=== PATIENT | female | born 1950 | race Caucasian/White ===

== ENCOUNTER 2018-03-07 14:39 | Observation (INO) | payer OTHER ==
[2018-03-07] MEDS ORDERED: DIAZEPAM 5 MG TAB PO ONE (14:54)
[2018-03-07] MEDS ORDERED: NS 1,000 ML IV ONE (14:54)
[2018-03-07] MEDS ORDERED: diphenhydrAMINE 25 MG CAP PO ONE (14:54)
[2018-03-07] MEDS ORDERED: ASPIRIN EC 325 MG TAB PO ONE (14:54)
[2018-03-07] MEDS ORDERED: FAMOTIDINE 20 MG TAB PO ONE (14:54)
[2018-03-07] MEDS ORDERED: LIDOCAINE 1% 300 MG/30 ML SDV ONE (15:12)
[2018-03-07] MEDS ORDERED: fentaNYL 100 MCG/2 ML INJ ONE ×2 (15:12→16:06)
[2018-03-07] MEDS ORDERED: MIDAZOLAM 2 MG/2 ML VIAL ONE ×3 (15:13→16:25)
[2018-03-07] MEDS ORDERED: IOPAMIDOL (ISOVUE-370) 150 ML BTL IV ONE ×2 (15:13→16:29)
[2018-03-07 15:21] LABS: PLATELET COUNT 171 10^3/uL (150-400)
[2018-03-07 15:34] LABS: INR 0.95 (0.83-1.16); PROTIME(PATIENT) 12.9 SEC (12.0-15.0)
--- NOTE | 2018-03-07 15:39 | PDPROPOC ---
Sedation Plan of Care Sedation Plan of Care: vital signs stable, mental status noted, patient educated of risks, benefits, alternatives, patient can tolerate sedation ASA Classification: ASA 2 Planned drugs: fentanyl, midazolam Mallampati Score: Class 2 Mallampati Reference Image: Patient passed 3-3-2 rule?: Yes
--- NOTE | 2018-03-07 15:39 | PDHPUP ---
History & Physical Update H&P update statement: This history and physical update is based on an assessment of the patient which was completed after admission or registration (within 24 hours), but prior to the surgery/procedure. H&P update: H&P reviewed & patient examined, no change in patient's condition since H&P completed
[2018-03-07] MEDS ORDERED: BIVALIRUDIN 250 MG/5 ML VIAL IV ONE (16:17)
[2018-03-07] MEDS ORDERED: ADENOSINE 90 MG/30 ML VIAL IV ONE (16:17)
[2018-03-07] MEDS ORDERED: NITROGLYCERIN 1,500 MCG/15 ML VIAL MISC ONE (16:36)
[2018-03-07] MEDS ORDERED: ASPIRIN 325 MG TAB ONE (16:44)
[2018-03-07] MEDS ORDERED: CLOPIDOGREL BISULFATE 75 MG TAB ONE (16:44)
[2018-03-07] MEDS ORDERED: NITROGLYCERIN 0.4 MG BTL SL PRN (17:04)
[2018-03-07] MEDS ORDERED: CLOPIDOGREL BISULFATE 75 MG TAB PO ONE (17:04)
[2018-03-07] MEDS ORDERED: LORazepam 2 MG/ML INJ IVP PRN (17:04)
[2018-03-07] MEDS ORDERED: ATROPINE SULFATE 1 MG/10 ML SYR IVP PRN (17:04)
[2018-03-07] MEDS: GABAPENTIN 300 MG CAP PO SCH (20:47)
[2018-03-07] MEDS: DOCUSATE SODIUM 100 MG CAP PO SCH (20:47)
[2018-03-07] MEDS: CALCIUM CARB W/VIT D 500 MG TAB PO SCH (20:47)
[2018-03-07] MEDS ORDERED: ZOLPIDEM TARTRATE 5 MG TAB PO SCH (21:00)
[2018-03-08 04:36] LABS: PLATELET COUNT 160 10^3/uL (150-400)
--- NOTE | 2018-03-08 06:49 | CPIP ---
DATE OF PROCEDURE: 03/07/2018 PROCEDURE: 1. Coronary angiography. 2. Left ventriculography. 3. Fractional flow reserve of left anterior descending coronary artery. 4. Stenting of left anterior descending coronary artery with Synergy drug-eluting stent. INDICATION: 1. Crescendo angina. 2. Abnormal stress test as intermediate risk. ACCESS: Patient was prepped and draped in sterile fashion. 1% lidocaine was used to anesthetize the right inguinal region. A 6-Yemeni introducer sheath was placed selectively into the right common fe moral artery via modified Seldinger technique. CORONARY ANGIOGRAPHY: A 6-Yemeni JL4 was advanced to the left main coronary artery and images obtain ed. The left main coronary artery bifurcated into an LAD and circumflex coronary arteries. The left main coronary artery appeared normal. The left anterior descending coronary artery was diffusely di seased. In the proximal portion of the vessel, there was a single discrete 30-40 percent stenosis pr esent. In the midportion of the vessel just after the takeoff of the first diagonal artery, there wa s a single discrete 75% stenosis present. The circumflex coronary artery appeared normal. A 6-Frenc h JR4 was advanced to the right coronary artery and images obtained. The right coronary artery was d ominant. The right coronary artery appeared normal. LEFT VENTRICULOGRAPHY: A 6-Yemeni pigtail catheter was advanced in the left ventricle and images obt ained. Left ventricle was normal in size and had normal systolic function. The estimated ejection f raction was 75%. FRACTIONAL FLOW RESERVE: Left anterior descending coronary artery: A 6-Yemeni JL4 was advanced to t he left main coronary artery and images obtained. Angiography confirmed the presence of intermediate to high-grade lesions involving the proximal and mid left anterior descending coronary artery. FFR wire was placed in the distal vessel and position verified by angiography. IV adenosine was infused and FFR obtained. The FFR was 0.74 distal to the mid lesion. The wire was then withdrawn into the m ore proximal portion of the vessel and FFR obtained. The FFR of the proximal lesion was 0.88. PERCUTANEOUS CORONARY INTERVENTION: Left anterior descending coronary artery: A Luge wire was place d in the distal vessel and position verified by angiography. A 2.25 x 12 Synergy drug-eluting stent was placed across the lesion and deployed. Followup angiography demonstrated [place]-3 flow with no res idual stenosis. COMPLICATIONS: None. CONCLUSIONS: 1. Single-vessel coronary artery disease involving the left anterior descending coronary artery. 2. Normal left ventricular size and systolic function. 3. Status post successful percutaneous coronary intervention of the left anterior descending coronar y artery using a Synergy drug-eluting stent. /[id number]/MODL
[2018-03-08 07:52] VITALS: BP 123/77
[2018-03-08] MEDS: GABAPENTIN 300 MG CAP PO SCH (08:10)
[2018-03-08] MEDS: CALCIUM CARB W/VIT D 500 MG TAB PO SCH (08:10)
[2018-03-08] MEDS: DOCUSATE SODIUM 100 MG CAP PO SCH (08:10)
[2018-03-08] MEDS ORDERED: CLOPIDOGREL BISULFATE 75 MG TAB PO SCH (09:00)
[2018-03-08] MEDS ORDERED: POLYETHYLENE GLYCOL 3350 17 GM PKT PO SCH (09:00)
[2018-03-08] MEDS ORDERED: CYANO/VITAMIN B12 1000 MCG TAB PO SCH (09:00)
[2018-03-08] MEDS ORDERED: CHOLECALCIFEROL VIT D3 1,000 UNITS TAB PO SCH (09:00)
[2018-03-08] MEDS ORDERED: ASPIRIN EC 325 MG TAB PO SCH (09:00)
[2018-03-08] MEDS ORDERED: PANTOPRAZOLE SODIUM 40 MG TAB PO SCH (09:15)
--- NOTE | 2018-03-08 10:00 | ASDISCHSUM ---
Discharge Information Plan Status:Home with No Needs Medically Cleared to Leave:03/07/2018 Discharge Date:03/07/2018 CM D/C Disposition:Home, Routine, Self-Care ADT D/C Disposition:Home, Routine, Self-Care Projected Discharge Date:03/07/2018 Transportation at D/C:Family Discharge Delay Reason: Follow-Up Date:03/07/2018 Discharge Slot: Final Diagnosis: Placement Information Patient Contact Information Contact Name:CHRISTOPHER Relationship: Address:[address] City:[facility] Phone: [facility]/Zip Code:[place] [address] Email: Financial Information Financial Class:Medicare Primary Plan Desc:MEDICARE OUTPATIENT Primary Plan Number:[id number] Secondary Plan Desc:[employer] Secondary Plan Number:[id number] Assessment Information LACE LACE Length of stay for Answers: Less than 1 day current admission Acuity / Level of Answers: No Care: Did the patient have an inpatient admission? # of Emergency department Answers: 0 visits in the last 6 months Date Signed: 03/08/2018 09:59 AM Electronically Signed By:Sharon Oconnell RN Intervention Information
--- NOTE | 2018-03-08 14:09 | GDS ---
DISCHARGE DIAGNOSES: 1. Acute coronary syndrome, status post percutaneous transluminal coronary angioplasty and stenting to mid left anterior descending artery. 2. Dyslipidemia, intolerant of multiple statins. 3. History of gastroesophageal reflux disease. 4. History of headaches. 5. History of degenerative disk disease. PROCEDURES: 03/07/2018, left heart catheterization, which showed single-vessel coronary artery disea se involving the left anterior descending, status post PTCA and stenting with a 2.25 x 12 mm synergy drug-eluting stent. BRIEF HISTORY: In brief, the patient is a 67-year-old female with a history of untreated dyslipidemi a due to sensitivity to multiple statins, early family history of coronary artery disease, who was se en for a treadmill stress test yesterday due to exertional symptoms. She reports a couple of months of symptoms of right chest and shoulder pain with exertion, relieved with rest. Her primary care phy sician, Dr. Belle, ordered a treadmill stress test, which showed EKG changes with exertion, and marisa ent had symptoms upon exertion. She proceeded to left heart catheterization on 03/07/2018. HOSPITAL COURSE BY PROBLEM: 1. Acute coronary syndrome. She has had crescendo angina symptoms starting in the past 2 months. S he proceeded to stress testing that was abnormal and then to left heart catheterization. She was fou nd to have occlusive disease involving her mid LAD. She is status post PTCA and stenting. We review ed the importance of dual antiplatelet therapy. 2. Aspirin allergy. She reports tinnitus that is still present despite not being on aspirin therapy . She will be started on aspirin 81 mg p.o. daily and Plavix. 3. GERD. She was advised to stay on her PPI due to the severity of her symptoms when not on this ag ent in the past. 4. Dyslipidemia. Her LDL yesterday was measured at 155. She will not be started on any statin. Sh e will bring a history of previous statins that she has tried, and we can consider initiating process for PCSK9 inhibitor therapy. 5. Elevated blood pressure. Patient reports that in the past couple of months her home readings hav e been up to 160. In this admission, her blood pressures do appear controlled. She was advised to s tart a daily blood pressure log and bring this to her next office appointment. PHYSICAL EXAM: VITAL SIGNS: On day of discharge, blood pressure 123/77, heart rate 60, respirations 18, O2 saturation 96% on room air, temp 98.1 degrees Fahrenheit. GENERAL: She is a pleasant female in no apparent distress. HEENT: Head is normocephalic, atraumatic. Eyes are without scleral icter us. HEART: Regular rate and rhythm. LUNGS: Clear. SKIN: Right groin site without ecchymosis, br uit, or hematoma present. LABORATORY STUDIES: BMP: Sodium 139, potassium 4.2, chloride 106, CO2 23, BUN 17, creatinine 0.9, g lucose 87, total cholesterol 252, triglycerides 220, LDL of 155, HDL 53. CBC with WBC 7.48, hemoglob in 13.6, hematocrit 39.6, platelet count of 160. RESULTS PENDING: None. DIET: Cardiac diet recommended. DISCHARGE MEDICATIONS: Please see med reconciliation for complete details. She may continue her jillian e Colace, cholecalciferol, MiraLAX, Ambien, omeprazole, Relafen, gabapentin, estrogen, vitamin B12, c alcium. Her new prescriptions are for clopidogrel 75 mg p.o. daily and aspirin 81 mg p.o. daily. ACTIVITY: Groin precautions were reviewed. DISCHARGE INSTRUCTIONS: 1. Follow up with Dr. Tenorio as scheduled for March 25. 2. Groin precautions for the next week. /[id number]/MODL
--- NOTE | 2018-03-08 17:39 | CPEKG ---
Test Reason : OPEN Blood Pressure : / mmHG Vent. Rate : 071 BPM Atrial Rate : 072 BPM P-R Int : 139 ms QRS Dur : 089 ms QT Int : 378 ms P-R-T Axes : 063 008 193 degrees QTc Int : 411 ms Sinus rhythm Confirmed by Garret Daly ([id number]) on 03/08/2018 5:39:30 PM Referred By: Confirmed By:Garret Daly
--- NOTE | 2018-03-08 17:40 | CPEKG ---
Test Reason : OPEN Blood Pressure : / mmHG Vent. Rate : 065 BPM Atrial Rate : 065 BPM P-R Int : 146 ms QRS Dur : 082 ms QT Int : 429 ms P-R-T Axes : 021 014 179 degrees QTc Int : 447 ms Sinus rhythm Nonspecific T abnormalities, diffuse leads Confirmed by Garret Daly ([id number]) on 03/08/2018 5:40:16 PM Referred By: Confirmed By:Garret Daly
--- NOTE | 2018-03-08 17:41 | CPEKG ---
Test Reason : OPEN Blood Pressure : / mmHG Vent. Rate : 062 BPM Atrial Rate : 063 BPM P-R Int : 140 ms QRS Dur : 086 ms QT Int : 429 ms P-R-T Axes : -06 006 162 degrees QTc Int : 436 ms Sinus rhythm Nonspecific T abnrm, anterolateral leads Confirmed by Garret Daly ([id number]) on 03/08/2018 5:41:14 PM Referred By: Confirmed By:Garret Daly
== END 2018-03-08 10:13 | disposition home or self-care (01) ==
LOC: FCATH 14:39 → F2W 16:38
PROVIDERS: ADMIT Internal Medicine Cardiovascular Disease; ATTEND Internal Medicine Cardiovascular Disease
PROC: B2111ZZ Fluoroscopy of Multiple Coronary Arteries using Low Osmolar Contrast (ICD-10-PCS; principal; 2018-03-07)
PROC: 027034Z Dilation of Coronary Artery, One Artery with Drug-eluting Intraluminal Device, Percutaneous Approach (ICD-10-PCS; principal; 2018-03-07)
PROC: 4A033BC Measurement of Arterial Pressure, Coronary, Percutaneous Approach (ICD-10-PCS; principal; 2018-03-07)
PROC: 4A023N7 Measurement of Cardiac Sampling and Pressure, Left Heart, Percutaneous Approach (ICD-10-PCS; principal; 2018-03-07)
PROC: B2151ZZ Fluoroscopy of Left Heart using Low Osmolar Contrast (ICD-10-PCS; principal; 2018-03-07)
DX: I25.118 Atherosclerotic heart disease of native coronary artery with other forms of angina pectoris (principal); E78.5 Hyperlipidemia, unspecified; K21.9 Gastro-esophageal reflux disease without esophagitis; Z88.6 Allergy status to analgesic agent
CPT/HCPCS: 93005; 93458; 93571; C1760; C1769; C1874; C1887; C9600; J0153; J0583; J1644; J2250; J3010; Q9967

== ENCOUNTER → 2018-03-07 | Outpatient (CLI) | payer OTHER | LOC: BHFA 13:33 | PROVIDERS: ATTEND Internal Medicine Cardiovascular Disease | DX: R07.9 Chest pain, unspecified (principal) ==